=== PATIENT | female | born 2000 | race Caucasian/White ===

== ENCOUNTER 2021-04-27 16:36 | Emergency (ER) | payer BC ==
[~2021-04-27] VITALS: Ht 167.6 cm; Wt 77.1 kg
[2021-04-27 18:33] LABS: BASO % 0.2 % (0.0-1.0); EOS # 0.1 10*3/uL (0.0-0.4); EOS % 0.5 % (1.0-4.0); LYMPH # 2.5 10*3/uL (1.3-4.4); LYMPH % 22.5 % (27.0-41.0); MEAN CELL VOLUME 88.9 fl (81.0-99.0); MEAN CORPUSCULAR HGB 30.3 pg (27.0-31.0); MEAN CORPUSCULAR HGB CONC 34.1 g/dl (33.0-37.0); MEAN PLATELET VOLUME 9.4 fl (9.6-12.3); MONO # 0.8 10*3/uL (0.1-1.0); MONO % 6.9 % (3.0-9.0); NEUT # 7.6 10*3/uL (2.3-7.9); NEUT % 69.5 % (47.0-73.0); PLATELET COUNT AUTOMATED 321 10*3/uL (130-400); RED BLOOD COUNT 4.16 10*6/uL (4.10-5.10); RED CELL DISTRI WIDTH 12.4 % (0-14.5); WHITE BLOOD COUNT 10.9 10*3/uL (4.8-10.8)
[2021-04-27 18:40] LABS: BILIRUBIN Negative (Negative); BLOOD Trace-Lysed (Negative); CLARITY Cloudy (Clear); COLOR Yellow (Yellow); GLUCOSE Negative (Negative); KETONE Negative (Negative); LEUKO ESTERASE 1+ (Negative); NITRITE Negative (Negative); PH 6.5 (4.5-8.0)
[2021-04-27 18:48] LABS: ALBUMIN 4.2 gm/dl (3.1-4.5); ALKALINE PHOSPHATASE 57 U/L (45-117); BUN 7 mg/dl (7-24); CHLORIDE 104 mmol/L (98-107); CREATININE 0.64 mg/dL (0.55-1.02); POTASSIUM 3.6 mmol/L (3.5-5.1); SGOT/AST 13 IU/L (3-35); SGPT/ALT 18 U/L (12-78); SODIUM 137 mmol/L (136-145); TOTAL PROTEIN 7.7 gm/dL (6.4-8.2)
[2021-04-27 18:50] LABS: WBC 31-40 wbc/hpf (0-5)
[2021-04-27 18:51] LABS: BACTERIA 3+; EPITHELIAL CELLS 41-50
[2021-04-27] MEDS ORDERED: CEFUROXIME AXE500 MG PO (19:43)
== END 2021-04-27 20:28 | disposition home or self-care (01) ==
LOC: ED 16:36
PROVIDERS: Physician Assistant
DX: O46.91 Antepartum hemorrhage, unspecified, first trimester (principal); Z3A.01 Less than 8 weeks gestation of pregnancy; F17.200 Nicotine dependence, unspecified, uncomplicated

== ENCOUNTER → 2024-05-21 | Outpatient (CLI) | payer OTHER ==
[~2024-05-21] MED LIST: CEFUROXIME AXE500 MG PO
[2024-05-21 17:40] LABS: BASO % 0.3 % (0.0-1.0); EOS # 0.1 10*3/uL (0.0-0.4); EOS % 1.6 % (1.0-4.0); HEMATOCRIT 37.6 % (37.0-47.0); LYMPH # 2.6 10*3/uL (1.3-4.4); LYMPH % 42.4 % (27.0-41.0); MEAN CELL VOLUME 89.7 fl (81.0-99.0); MEAN CORPUSCULAR HGB 31.3 pg (27.0-31.0); MEAN CORPUSCULAR HGB CONC 34.8 g/dl (33.0-37.0); MEAN PLATELET VOLUME 9.6 fl (9.6-12.3); MONO # 0.3 10*3/uL (0.1-1.0); MONO % 5.6 % (3.0-9.0); NEUT % 49.9 % (47.0-73.0); PLATELET COUNT AUTOMATED 322 10*3/uL (130-400); RED BLOOD COUNT 4.19 10*6/uL (4.10-5.10); RED CELL DISTRI WIDTH 12.5 % (0-14.5); WHITE BLOOD COUNT 6.1 10*3/uL (4.8-10.8)
[2024-05-21 17:42] LABS: BILIRUBIN Negative (Negative); BLOOD 1+ (Negative); CLARITY Clear (Clear); COLOR Yellow (Yellow); GLUCOSE Negative (Negative); KETONE Negative (Negative); LEUKO ESTERASE Negative (Negative); NITRITE Negative (Negative); PH 5.5 (4.5-8.0); SPECIFIC GRAVITY >= 1.030 (1.001-1.030)
[2024-05-21 17:53] LABS: BACTERIA TRACE; MUCOUS 2+; WBC 16-20 wbc/hpf (0-5)
[2024-05-21 18:03] LABS: ALKALINE PHOSPHATASE 50 U/L (46-116); BUN 6 mg/dl (9-23); CHLORIDE 107 mmol/L (98-107); POTASSIUM 3.2 mmol/L (3.4-5.1); SGPT/ALT 13 U/L (5-49); TOTAL PROTEIN 7.5 gm/dL (6.0-8.0)
[2024-05-22 14:09] LABS: CCP ANTIBODIES IGG/IGA 7 units (0-19)
== END | disposition home or self-care (01) ==
LOC: LAB 17:07
PROVIDERS: ATTEND Internal Medicine
DX: M25.50 Pain in unspecified joint (principal)

== ENCOUNTER 2025-02-02 23:34 | Emergency (ER) | payer SELFPAY ==
[~2025-02-02] VITALS: Ht 162.5 cm; Wt 63.5 kg
[2025-02-02] MEDS ORDERED: ACETAMINOPHEN 325 MG TAB PO ONE (23:55)
[2025-02-03 00:16] LABS: BASO % 0.4 % (0.0-1.0); EOS # 0.1 10*3/uL (0.0-0.4); EOS % 1.9 % (1.0-4.0); HEMATOCRIT 34.6 % (37.0-47.0); MEAN CELL VOLUME 91.5 fl (81.0-99.0); MEAN CORPUSCULAR HGB 29.6 pg (27.0-31.0); MEAN CORPUSCULAR HGB CONC 32.4 g/dl (33.0-37.0); MEAN PLATELET VOLUME 9.1 fl (9.6-12.3); MONO # 0.5 10*3/uL (0.1-1.0); MONO % 7.4 % (3.0-9.0); NEUT # 3.3 10*3/uL (2.3-7.9); NEUT % 47.3 % (47.0-73.0); PLATELET COUNT AUTOMATED 269 10*3/uL (130-400); RED BLOOD COUNT 3.78 10*6/uL (4.10-5.10); RED CELL DISTRI WIDTH 13.3 % (0-14.5)
[2025-02-03 00:27] LABS: BILIRUBIN Negative (Negative); BLOOD Trace-Lysed (Negative); CLARITY Clear (Clear); COLOR Yellow (Yellow); GLUCOSE Negative (Negative); KETONE Negative (Negative); LEUKO ESTERASE Negative (Negative); NITRITE Negative (Negative); PH 5.5 (4.5-8.0)
[2025-02-03 00:37] LABS: BACTERIA 1+; MUCOUS TRACE; WBC 0-2 wbc/hpf (0-5)
[2025-02-03 00:38] LABS: BUN 13 mg/dl (9-23); CHLORIDE 106 mmol/L (98-107); POTASSIUM 3.6 mmol/L (3.4-5.1)
[2025-02-03] MEDS ORDERED: Rho(D) Immune Globulin 300 MCG/2 ML SYR IM ONE (01:20)
== END 2025-02-03 02:35 | disposition home or self-care (01) ==
LOC: ED 23:34
PROVIDERS: Emergency Medicine
DX: O20.0 Threatened abortion (principal); Z79.2 Long term (current) use of antibiotics; Z3A.01 Less than 8 weeks gestation of pregnancy

== ENCOUNTER → 2025-02-04 | Outpatient (CLI) | payer SELFPAY | END | disposition home or self-care (01) | LOC: LAB 09:27 | PROVIDERS: ATTEND Emergency Medicine | DX: O20.0 Threatened abortion (principal) ==